=== PATIENT | female | born 1970 | race Caucasian/White ===

== ENCOUNTER 2019-08-05 11:12 | Emergency (ER) | payer OTHER, SELFPAY ==
[2019-08-05 11:26] VITALS: BP 132/82; PULSE 75; RESP 14; TEMP 37; O2SAT 100; BMI 23.0
--- NOTE | 2019-08-05 12:41 | XR_ITS ---
WS: [id number] LUMBAR SPINE TECHNIQUE: 3 views of the lumbar spine CLINICAL INFORMATION: trauma COMPARISON: March 12, 2014 FINDINGS: Five bfj-sof-inmjaav lumbar vertebral bodies. Mild lumbar curve convex left. Chronic anterior wedging in the lower thoracic spine. Mild disc space narrowing L1-2. Mild to moderate facet arthropathy L5-S 1. Aortic calcification. Alignment is unchanged since 2013. XR/XR lumbar spine 2-3V* [id number] IMPRESSION: No acute lumbar spine findings.
--- NOTE | 2019-08-05 12:42 | ED_ITS ---
HPI - Back Pain/Injury General: Chief Complaint: Back Pain/Injury Stated Complaint: BACK PAIN X 5 WEEKS Time Seen by Provider: 08/05/19 12:29 History of Present Illness: HPI Narrative: Patient was jumping on trampoline the other day and then her back started hurting couple days later and is continued hurts she has been to the walk-in clinic and they gave her Toradol shot and Parafon forte. This did not really help and she went saw Dr. Oneil and he gave her steroid shot and gave her some Flexeril and she said steroid shot did bring some effective relief but the pain is starting to come back now denies any pain with ambulation does have pain with rolling over in bed get up out of chair trying to lift anything and it located on her left side of her back MD elicited complaint: back pain and back injury Pertinent past history: prior back pain Onset (ago): day(s) Timing: progressively worsening Severity: moderate Similar Symptoms Previously: No Quality: aching Location: lumbar spine and left flank Radiation: none Exacerbating factors: walking and lifting Relieving factors: immobilization Context: other (Jumping on trampoline) Associated symptoms: Reports no associated symptoms; Deny abdominal pain, chills, fever(s), nausea or vomiting Review of Systems Const: Denies: fever(s), chills or body aches Eyes: Denies: change in vision or blurry vision ENMT: Denies: throat pain or nasal congestion Card: Denies: chest pain or dyspnea on exertion Resp: Denies: dyspnea, productive cough or non-productive cough GI: Denies: abdominal pain, nausea or vomiting Musc: Reports: back pain; Denies: extremity pain Skin/Breast: Denies: rash Neuro: Denies: headache(s) Psych: Denies: anxiety or depression [place]/Lymph: Denies: easy bruising PFSH ED PFSH: Social History Smoking and tobacco status: never smoked Physical Exam Const: COMMON NORMALS: no acute distress, average body habitus and patient oriented x3 HENMT: COMMON NORMALS: normocephalic HEAD & SCALP: normal to inspection and normocephalic FACE & SINUS: normal facial exam Eye: COMMON NORMALS: conjunctivae normal GENERAL EYE: appearance normal, both eyes and all related structures CONJUNCTIVA: Yes conjunctivae normal Neck/C-Spine: COMMON NORMALS: no JVD Chest: COMMONS NORMALS: normal inspection of the chest Resp: COMMON NORMALS: normal respiratory effort and clear to auscultation bilaterally AUSCULTATION: clear to auscultation bilaterally Cardio: COMMON NORMALS: no JVD, regular rate and regular rhythm RATE: regular rate RHYTHM: regular rhythm GI: COMMON NORMALS: Normal to inspection, nondistended, normoactive bowel sounds present Back/Pelvis: LUMBAR SPINE/LOWER BACK: Yes straight leg raise positive left Extremity: COMMON NORMALS: normal to inspection and full ROM Neuro: COMMON NORMALS: patient oriented x3 Course Vital Signs: Vital signs: Vital Signs Temperature 98.6 F 08/05/19 11:26 Pulse Rate 75 08/05/19 11:26 Respiratory Rate 14 08/05/19 11:26 Blood Pressure 132/82 08/05/19 11:26 Pulse Oximetry 100 08/05/19 11:26 Discharge Plan Discharge Condition: Good Coding Level of Care Code ED Analytics Developer for Olena Jung
[2019-08-05 13:37] VITALS: BP 136/68; PULSE 72; RESP 17; O2SAT 98
== END 2019-08-05 13:39 | disposition home or self-care (01) ==
PROVIDERS: Emergency Provider Nurse Practitioner Family; PCP Family Medicine
DX: M54.9 Dorsalgia, unspecified (principal)
CPT/HCPCS: 12345; 72100; 99281; 99283

== ENCOUNTER 2020-11-24 10:21 | Emergency (ER) | payer OTHER, SELFPAY ==
--- NOTE | 2020-11-24 10:22 | ECG_ITS ---
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 Measurements Intervals [place] Rate: 50 P: 68 GA: 130 QRS: 18 QRSD: 86 T: 56 QT: 446 QTc: 409 Interpretive Statements SINUS BRADYCARDIA Compared to ECG 03/22/2015 12:12:06 No significant changes Electronically Signed On 11-24-2020 17:03:36 CDT by Virginia Colorado M.D. [email or web address]/[id number] f
--- NOTE | 2020-11-24 10:22 | XR_ITS ---
WS: [id number] Portable AP upright chest, 11/24/2020 Clinical Data: chest pain Comparison: PA and lateral chest, 02/26/2018. Findings: No nodules, masses or effusions are seen. The heart is slightly enlarged. The pulmonary vas cularity is not increased. No pneumonia or pneumothorax is seen. XR/XR chest 1V portable [id number] Impression: Mild cardiomegaly.
[2020-11-24 10:39] VITALS: BP 159/83; PULSE 50; RESP 16; TEMP 36.8; O2SAT 98; BMI 22.6
--- NOTE | 2020-11-24 12:22 | ECG_ITS ---
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 Measurements Intervals [place] Rate: 49 P: 59 NH: 131 QRS: -9 QRSD: 94 T: 42 QT: 465 QTc: 420 Interpretive Statements SINUS BRADYCARDIA INCOMPLETE RIGHT BUNDLE BRANCH BLOCK [90+ ms QRS DURATION, TERMINAL R IN V1/V2, 40+ ms S IN I/aVL/V4/V5/V6] Compared to ECG 11/24/2020 10:45:36 Incomplete right bundle-branch block now present Electronically Signed On 11-25-2020 9:30:31 CDT by Virginia Colorado M.D. [email or web address])/store/NU/[id number] f
[2020-11-24 12:30] VITALS: BP 193/99; PULSE 53; RESP 19; O2SAT 98
[2020-11-24 12:43] LABS: Basophils % 0.5 %; Eosinophils # 0.1 10^3/uL (0.0-0.8); Eosinophils % 1.3 %; Hemoglobin 13.9 g/dL (11.5-15.3); Lymphocytes % 38.4 %; Mean Corpuscular HGB Conc 33.1 g/dL (30.0-36.0); Mean Corpuscular Hemoglobin 30.7 pg (28.0-34.0); Mean Corpuscular Volume 92.7 fl (81-99); Mean Platelet Volume 9.7 fL (7.4-10.4); Monocytes # 0.7 10^3/uL (0.2-0.9); Monocytes % 9.4 %; Neutrophils # 3.87 10^3/uL (1.8-7.7); Neutrophils % 50.1 %; Nucleated Red Blood Cells % 0 %; Platelet Count 317 10^3/cmm (130-400); Red Blood Count 4.53 10^6/uL (4.1-5.3); Red Cell Distribution Width 12.3 % (12.1-15.1); White Blood Count 7.7 10^3/uL (4.0-10.0)
--- NOTE | 2020-11-24 12:53 | W.ED.CHESTPA ---
HPI - Chest Pain General: Chief Complaint: Chest Pain Stated Complaint: chest pain for 4 days Time Seen by Provider: 11/24/20 12:03 History of Present Illness: HPI narrative: 50-year-old female presents to the emergency room with complaint of chest pain for the last 4 days. She initially thought it was heartburn-like. Pain is persisted. Patient exercises regularly and during the course of the time of having this chest pain she is run up to a mile with no change in the chest discomfort is not made better or worse. She is bradycardic from a conditioning on her heart rate usually runs in the low upper 40s to low 50s. Patient has no known history of heart disease. MD complaint: chest discomfort Onset (ago): day(s) (4) Timing of current episode: constant Prior episodes: Yes Onset: during rest and during exertion Pain location: left chest Pain radiation: none Severity: mild Quality: aching and dull Relieving factors: nothing Exacerbating factors: nothing Associated symptoms: Deny abdominal pain, diaphoresis, dyspnea, fever(s), leg edema, nausea, palpitations, sense of impending doom, syncope or vomiting Treatment prior to arrival: none Review of Systems Const: Denies: fever(s) or diaphoresis ENMT: Denies: throat pain, ear or mastoid pain, nasal discharge or nasal congestion Card: Denies: palpitations or syncope Resp: Denies: dyspnea GI: Denies: abdominal pain, nausea or vomiting : Denies: flank pain, difficulty voiding, dysuria, urinary frequency or urinary urgency Skin/Breast: Denies: rash or pruritus [facility] ED PFSH: Social History Smoking and tobacco status: never smoked Physical Exam Const: COMMON NORMALS: no acute distress GENERAL APPEARANCE: cooperative and comfortable ORIENTATION/CONSCIOUSNESS: Yes awake, Yes oriented to person, Yes oriented to place and Yes oriented to time HENMT: COMMON NORMALS: normocephalic, atraumatic, hearing grossly normal bilaterally, external ears normal, EAC's normal, TM's normal bilaterally, Normal nasal mucous membranes and turbinates present, moist oral mucous membranes and oropharynx normal HEAD & SCALP: normocephalic and atraumatic NOSE: Normal nasal mucous membranes and turbinates present EXTERNAL EAR: Yes external ears normal EXTERNAL AUDITORY CANAL: EAC's normal TYMPANIC MEMBRANE: TM's normal bilaterally Eye: COMMON NORMALS: Equal, round and reactive pupils present, EOMs intact bilaterally, conjunctivae normal and no scleral icterus CONJUNCTIVA: Yes conjunctivae normal PUPIL: Yes Equal, round and reactive pupils present Neck/C-Spine: COMMON NORMALS: full ROM, no lymphadenopathy, supple and no JVD Lymph: LYMPHATIC: no lymphadenopathy noted and no lymphedema noted Resp: COMMON NORMALS: normal respiratory effort, No retractions, No use of accessory muscles and clear to auscultation bilaterally AUSCULTATION: clear to auscultation bilaterally Cardio: COMMON NORMALS: no JVD, regular rate, regular rhythm and No murmurs present (Cardio) RATE: regular rate RHYTHM: regular rhythm GI: COMMON NORMALS: Soft to palpation and No hepatosplenomegaly present AUSCULTATION: Yes normoactive bowel sounds PALPATION: Yes Soft to palpation, No Tenderness to palpation present (GI), No Guarding due to palpation present (GI) and Yes No hepatosplenomegaly present Extremity: COMMON NORMALS: normal to inspection, capillary refill normal, no clubbing, cyanosis or edema, no calf tenderness and no pedal edema Neuro: SENSORIUM/ORIENTATION: Yes oriented to person, Yes oriented to place and Yes oriented to time Skin: COMMON NORMALS: no rashes or lesions noted GENERAL SKIN EXAM: no rashes or lesions noted Course Vital Signs: Vital signs: Vital Signs Temperature 98.3 F 11/24/20 10:39 Pulse Rate 53 L 11/24/20 12:30 Respiratory Rate 19 H 11/24/20 12:30 Blood Pressure 193/99 11/24/20 12:30 Pulse Oximetry 98 11/24/20 12:30 MDM - Chest Pain MDM Narrative: Medical decision making narrative: Symptoms for 4 days troponin negative interestingly she is running a mile with no change in her symptoms. I will pretty low suspicion of this being cardiac in nature given that Lab Data: Labs: Lab Results 11/24/20 11/24/20 11/24/20 Range/Units 12:30 12:30 12:30 WBC 7.7 (4.0-10.0) 10^3/ uL RBC 4.53 (4.1-5.3) 10^6/u L Hgb 13.9 (11.5-15.3) g/dL Hct 42.0 (37.0-47.0) % MCV 92.7 (81-99) fl MCH 30.7 (28.0-34.0) pg MCHC 33.1 (30.0-36.0) g/dL RDW 12.3 (12.1-15.1) % Plt Count 317 (130-400) 10^3/c mm MPV 9.7 (7.4-10.4) fL Neut % (Auto) 50.1 % Lymph % (Auto) 38.4 % [place] % (Auto) 9.4 % Eos % (Auto) 1.3 % Baso % (Auto) 0.5 % Neut # (Auto) 3.87 (1.8-7.7) 10^3/u L Lymph # (Auto) 3.0 (0.8-4.8) 10^3/u L [place] # (Auto) 0.7 (0.2-0.9) 10^3/u L Eos # (Auto) 0.1 (0.0-0.8) 10^3/u L Baso # (Auto) 0.0 (0.0-0.1) 10^3/u L Nucleated RBC % (a uto) 0 % Nucleated RBCs # 0.0 /100WBC Sodium 138 (136-145) mmol/L Potassium 3.8 (3.5-5.1) mmol/L Chloride 100 (98-107) mmol/L Carbon Dioxide 26 (22-29) mmol/L Anion Gap 15.8 (5-19) BUN 7 (6-20) mg/dL Creatinine 0.6 (0.5-0.9) mg/dL GFR Calculation 105.0 (90-130) mL/min Glucose 83 (65-115) mg/dL Calculated Osmolal ity 283 L (285-295) mOsm/k g Calcium 9.1 (8.5-10.5) mg/dL Total Bilirubin 0.2 (0.15-1.2) mg/dL AST 20 (0-32) U/L ALT 9 (0-33) U/L Alkaline Phosphata se 91 (35-105) IU/L Troponin T Baselin e 6 (0-10) ng/L Total Protein 7.2 (6.6-8.7) g/dL Albumin 4.3 (3.5-5.2) g/dL Globulin 2.9 (1.3-4.6) g/dL Discharge Plan Discharge Patient Disposition: Home Clinical Impression: Atypical chest pain Condition: Stable Prescriptions: New aspirin 81 mg tablet,delayed release (DR/EC) 81 mg PO DAILY Qty: 30 RF: 0 Protonix 40 mg tablet,delayed release (DR/EC) 40 mg PO DAILY 56 Days RF: 0 No Action ibuprofen 800 mg tablet 800 mg PO Q6H PRN (Reason: Pain) RF: 0 Discharge Orders: Discharge ED (Routine); Ordered 11/24/20 Ordered By: Eros Goodwin Referrals: Kayode Oneil MD [Primary Care Provider] - Discharge Diet: Usual diet Discharge Activity: Limit activity as instructed Patient Instructions: Opioid Safety Activity Restrictions/Additional Instructions: Case management will call to set up for his Lexiscan sestamibi stress test Coding Level of Care Code ED Legal Administrative Assistant for Olena Jung
[2020-11-24 13:09] LABS: Troponin(5th) Baseline 6 ng/L (0-10)
[2020-11-24 13:10] LABS: Alanine Aminotransferase 9 U/L (0-33); Albumin Level 4.3 g/dL (3.5-5.2); Alkaline Phosphatase 91 IU/L (35-105); Anion Gap 15.8 (5-19); Aspartate Amino Transferase 20 U/L (0-32); Blood Urea Nitrogen 7 mg/dL (6-20); Calcium 9.1 mg/dL (8.5-10.5); Carbon Dioxide 26 mmol/L (22-29); Chloride 100 mmol/L (98-107); Globulin 2.9 g/dL (1.3-4.6); Glucose 83 mg/dL (65-115); Osmolality Calculated 283 mOsm/kg (285-295); Potassium 3.8 mmol/L (3.5-5.1); Sodium 138 mmol/L (136-145); Total Bilirubin 0.2 mg/dL (0.15-1.2); Total Protein 7.2 g/dL (6.6-8.7)
[2020-11-24] MEDS: lidocaine 2% viscous 15 ML, aluminum-mag hydrox-simethicon 30 ML, sucralfate oral liq 1 GM PO (13:14)
== END 2020-11-24 14:06 | disposition home or self-care (01) ==
PROVIDERS: Physician Assistant; Emergency Provider Family Medicine; PCP Family Medicine
DX: R07.89 Other chest pain (principal)
CPT/HCPCS: 71045; 80053; 84484; 85025; 93005; 99283

== ENCOUNTER 2021-01-13 09:59 | Outpatient (CLI) | payer OTHER, SELFPAY ==
[2021-01-13 10:35] VITALS: BMI 23.0
--- NOTE | 2021-01-13 10:35 | ECG_ITS ---
[facility] Test Date: 2021-01-13 Pat Name: Ingrid Coleman Department: Room: Gender: Female Accounting Instructor: Maria Fernanda Strickland : 1970 Requested By: Kayode Covington Order Number: [id number] Jin MD: LUCIUS BALL Interpretive Statements NAME OF STUDY: TREADMILL STRESS TEST INDICATION: Chest Pain, EXERCISE DATA: The patient was exercised by Victor M protocol. Baseline heart rate was 64 beats per minute. Baseline blood pressure was 145/93 millimeters of mercury. Target heart rate was 168 beats per minute. Maximum heart rate achieved was 155, which was 92 % of the target heart rate. Maximum blood pressure was 216/93 millimeters of mercury. Total exercise time was 13.20. Maximum METs achieved was 17.2, maximum VO2 was 60.2. The reason for ending the test was maximum effort achieved. The patient complained of shortness of during the stress test, which then resolved at the end of the test. ELECTROCARDIOGRAM: BASELINE: Showed sinus rhythm, normal axis, no significant ST-T changes at the baseline noted. EXERCISE: At the peak exercise level, no significant ST-T changes suggestive of ischemia noted. RECOVERY: During the recovery period, heart rate dropped appropriately. No significant ST-T changes in the recovery suggestive of ischemia noted. CONCLUSION: 1. Exercise capacity good. 2. Heart rate response was appropriate. 3. Blood pressure response was appropriate. 4. Symptoms not suggestive of ischemia. 5. Electrocardiogram portion of the stress test was not suggestive of ischemia. 6. Nuclear scan will be documented separately. Electronically Signed On 01-13-2021 20:59:35 CDT by LUCIUS BALL [email or web address]/store/OM/[id number]/[id number]
[2021-01-13 11:12] VITALS: BP 158/70; PULSE 80
== END 2021-01-13 10:00 | disposition home or self-care (01) ==
PROVIDERS: PCP Family Medicine; Visit Provider Family Medicine
DX: R07.9 Chest pain, unspecified (principal)
CPT/HCPCS: 93017

== ENCOUNTER 2021-03-02 09:17 | Outpatient (CLI) | payer OTHER, SELFPAY ==
--- NOTE | 2021-03-02 09:23 | MM_ITS ---
WS: [id number] BILATERAL DIGITAL SCREENING MAMMOGRAPHY WITH CAD CLINICAL INFORMATION: SCREENING HISTORY: Screening mammogram. No current complaints. COMPARISON: TECHNIQUE: Bilateral CC and MLO views. FINDINGS: Scattered areas of fibroglandular density bilaterally. Punctate and lucent centered calcifications [place] stable. Stable clustered coarse calcifications. No suspicious mass, asymmetry, calcifications, o r architectural distortion. No evidence of malignancy. MM/[place] [id number] IMPRESSION: BI-RADS: 2-Benign FOLLOW UP: 1 Year Follow-up Recommend return to annual screening mammography.
== END 2021-03-02 09:18 | disposition home or self-care (01) ==
LOC: RADSHAW 09:20
PROVIDERS: PCP Family Medicine; Visit Provider Family Medicine
DX: Z12.31 Encounter for screening mammogram for malignant neoplasm of breast (principal)
CPT/HCPCS: 77067

== ENCOUNTER 2022-01-05 18:36 | Emergency (ER) | payer OTHER, SELFPAY ==
[2022-01-05 18:40] VITALS: BP 102/67; PULSE 105; RESP 16; TEMP 36.8; O2SAT 95; BMI 22.1
--- NOTE | 2022-01-05 18:55 | ECG_ITS ---
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 Measurements Intervals [place] Rate: 107 P: 70 [place]: 122 QRS: 8 QRSD: 75 T: 57 QT: 330 QTc: 440 Interpretive Statements SINUS TACHYCARDIA NONSPECIFIC ST & T-WAVE ABNORMALITY ABNORMAL RHYTHM ECG Compared to ECG 11/24/2020 13:35:45 T-wave abnormality now present Sinus bradycardia no longer present Incomplete right bundle-branch block no longer present Electronically Signed On 01-06-2022 16:47:43 CDT by Joey Canchola M.D. [email or web address]/store/NU/[id number] f
--- NOTE | 2022-01-05 19:01 | XRR_ITS ---
PROCEDURE INFORMATION: Exam: XR Chest Exam date and time: 01/05/2022 7:05 PM Age: 51 years old Clinical indication: Pain; Angina pectoris and chest pressure; Additional info: Cp TECHNIQUE: Imaging protocol: Radiologic exam of the chest. Views: 1 view. COMPARISON: CR XR chest 1V portable [id number] 11/24/2020 10:33 AM FINDINGS: Lungs: Unremarkable. No consolidation. Pleural spaces: Unremarkable. No pleural effusion. No pneumothorax. Heart/Mediastinum: Unremarkable. No cardiomegaly. Bones/joints: Unremarkable. XR/XR chest 1V portable [id number] IMPRESSION: No acute findings.
--- NOTE | 2022-01-05 19:06 | W.ED.CHESTPA ---
HPI - Chest Pain General: Chief Complaint: Chest Pain Stated Complaint: Chest pain Time Seen by Provider: 01/05/22 18:56 Source: patient Mode of arrival: ambulatory Limitations: no limitations History of Present Illness: 51-year-old female states she has been having some palpitations along with chest pain over the last 2 days she states she had her potassium checked yesterday and it was low. States that this evening she started having a sharp pain in her chest along with feeling her heart rate was increasing states that her pain is since resolved she denies any shortness of breath denies any cough denies any fever denies any nausea or diaphoresis. Associated symptoms: Reports palpitations; Deny abdominal pain, dyspnea, fever(s), nausea or vomiting Review of Systems Const: Denies: fever(s), chills, body aches or change in appetite Eyes: Denies: blurry vision or eye discomfort ENMT: Denies: throat pain or dental pain Card: Reports: chest pain and palpitations Resp: Denies: dyspnea GI: Denies: abdominal pain, nausea, vomiting or diarrhea : Denies: dysuria Musc: Denies: neck pain or back pain Skin/Breast: Denies: rash Neuro: Denies: headache(s) Psych: Denies: depression [place]/Lymph: Denies: easy bruising All/Imm: Denies: urticaria PFSH ED PFSH: Medical History No pertinent past medical history Social History Smoking and tobacco status: never smoked Physical Exam Const: COMMON NORMALS: no acute distress, patient oriented x3 and healthy appearing HENMT: COMMON NORMALS: normocephalic and atraumatic HEAD & SCALP: normocephalic and atraumatic Eye: COMMON NORMALS: Equal, round and reactive pupils present and EOMs intact bilaterally PUPIL: Yes Equal, round and reactive pupils present Neck/C-Spine: COMMON NORMALS: full ROM and supple Chest: COMMONS NORMALS: normal inspection of the chest and normal palpation of entire chest wall Resp: COMMON NORMALS: normal respiratory effort, No retractions, No use of accessory muscles and clear to auscultation bilaterally AUSCULTATION: clear to auscultation bilaterally Cardio: COMMON NORMALS: regular rate, regular rhythm and No murmurs present (Cardio) RATE: regular rate RHYTHM: regular rhythm GI: COMMON NORMALS: Normal to inspection, nondistended, normoactive bowel sounds present, Soft to palpation, non-tender and no masses PALPATION: Yes Soft to palpation Extremity: COMMON NORMALS: normal to inspection and full ROM Neuro: COMMON NORMALS: patient oriented x3, moves all extremities and no focal motor deficits Psych: COMMON NORMALS: mental status grossly normal, Normal thought process present and cooperative THOUGHT PROCESS: Normal thought process present Skin: COMMON NORMALS: no rashes or lesions noted and no wounds GENERAL SKIN EXAM: no rashes or lesions noted Course Vital Signs: Vital signs: Vital Signs Temperature 98.3 F 01/05/22 18:40 Pulse Rate 74 01/05/22 21:57 Respiratory Rate 19 H 01/05/22 21:57 Blood Pressure 110/74 01/05/22 21:57 Pulse Oximetry 96 01/05/22 21:57 Oxygen Delivery Me thod 01/05/22 18:40 MDM - Chest Pain Medical Decision Making Patient presents here with chest pain that is atypical in nature patient's initial and repeat troponins here are normal patient stable for discharge. She is stable for discharge she is to follow-up with PCP and return if worsening. Lab Data : 01/05/22 19:20 01/05/22 19:20 Radiology Impressions Chest X-Ray 01/05/22 19:01 IMPRESSION: No acute findings. Laboratory Results WBC 7.8 10^3/uL (4.0-10.0) 01/05/22 19: RBC 4.01 10^6/uL (4.1-5.3) L 01/05/22 19:20 Hgb 12.6 g/dL (11.5-15.3) 01/05/22 19: Hct 36.9 % (37.0-47.0) L 01/05/22 19: MCV 92.0 fl (81-99) 01/05/22 19:20 MCH 31.4 pg (28.0-34.0) 01/05/22 19: MCHC 34.1 g/dL (30.0-36.0) 01/05/22 19:20 RDW 12.0 % (12.1-15.1) L 01/05/22 19:20 Plt Count 277 10^3/cmm (130-400) 01/05/22 19:20 MPV 9.7 fL (7.4-10.4) 01/05/22 19:20 Neut % (Auto) 64.1 % 01/05/22 19:20 Lymph % (Auto) 26.2 % 01/05/22 19:20 [place] % (Auto) 8.7 % 01/05/22 19:20 Eos % (Auto) 0.4 % 01/05/22 19:20 Baso % (Auto) 0.3 % 01/05/22 19:20 Neut # (Auto) 5.02 10^3/uL (1.8-7.7) 01/05/22 19:20 Lymph # (Auto) 2.1 10^3/uL (0.8-4.8) 01/05/22 19:20 [place] # (Auto) 0.7 10^3/uL (0.2-0.9) 01/05/22 19:20 Eos # (Auto) 0.0 10^3/uL (0.0-0.8) 01/05/22 19:20 Baso # (Auto) 0.0 10^3/uL (0.0-0.1) 01/05/22 19:20 Nucleated RBC % (auto) 0 % 01/05/22 19:20 Nucleated RBCs # 0.0 /100WBC 01/05/22 19:20 Sodium 134 mmol/L (136-145) L 01/05/22 19:20 Potassium 3.1 mmol/L (3.5-5.1) L 01/05/22 19:20 Chloride 98 mmol/L (98-107) 01/05/22 19:20 Carbon Dioxide 24 mmol/L (22-29) 01/05/22 19:20 Anion Gap 15.1 (5-19) 01/05/22 19:20 BUN 9 mg/dL (6-20) 01/05/22 19:20 Creatinine 0.6 mg/dL (0.5-0.9) 01/05/22 19:20 GFR Calculation 104.6 mL/min (90-130) 01/05/22 19:20 Glucose 96 mg/dL (65-115) 01/05/22 19:20 Calculated Osmolality 277 mOsm/kg (285-295) L 01/05/22 19:20 Calcium 9.1 mg/dL (8.5-10.5) 01/05/22 19:20 Total Bilirubin 0.3 mg/dL (0.15-1.2) 01/05/22 19:20 AST 17 U/L (0-32) 01/05/22 19:20 ALT 7 U/L (0-33) 01/05/22 19:20 Alkaline Phosphatase 60 U/L (35-105) 01/05/22 19:20 Troponin T Baseline 6 ng/L (0-10) 01/05/22 19:20 Troponin T 120 Minute 8.02 ng/L (0-10) 01/05/22 21:15 Delta Troponin T 2.02 ABS# (0-10) 01/05/22 21:15 Total Protein 7.0 g/dL (6.6-8.7) 01/05/22 19:20 Albumin 3.9 g/dL (3.5-5.2) 01/05/22 19:20 Globulin 3.1 g/dL (1.3-4.6) 01/05/22 19:20 EKG Data EKG 1: I personally reviewed and interpreted this EKG as follows: EKG interpretation date: 01/05/22 EKG interpretation time: 18:44 Interpretation: sinus tach hr [address] or t wave abnormalities Discharge Plan Discharge Patient Disposition: Home Clinical Impression: Chest pain Condition: Stable Prescriptions: No Action ibuprofen 800 mg tablet 800 mg PO Q6H PRN (Reason: Pain) aspirin 81 mg tablet,delayed release (DR/EC) 81 mg PO DAILY Qty: 30 0RF Discharge Orders: Discharge ED (Routine); Ordered 01/05/22 Ordered By: Savita Howell Referrals: Kayode Oneil MD [Primary Care Provider] - 1-3 days Discharge Diet: Advance as tolerated Discharge Activity: Resume usual activity Patient Instructions: Chest Pain (ED) Coding Level of Care Code ED Lagging Machine Operator for Chg Fwd Exam Comprehensive
[2022-01-05 19:17] VITALS: BP 114/87; PULSE 86; RESP 15; O2SAT 96
[2022-01-05 19:29] LABS: Basophils % 0.3 %; Eosinophils % 0.4 %; Hematocrit 36.9 % (37.0-47.0); Hemoglobin 12.6 g/dL (11.5-15.3); Lymphocytes # 2.1 10^3/uL (0.8-4.8); Lymphocytes % 26.2 %; Mean Corpuscular HGB Conc 34.1 g/dL (30.0-36.0); Mean Corpuscular Hemoglobin 31.4 pg (28.0-34.0); Mean Platelet Volume 9.7 fL (7.4-10.4); Monocytes # 0.7 10^3/uL (0.2-0.9); Monocytes % 8.7 %; Neutrophils # 5.02 10^3/uL (1.8-7.7); Neutrophils % 64.1 %; Nucleated Red Blood Cells % 0 %; Platelet Count 277 10^3/cmm (130-400); Red Blood Count 4.01 10^6/uL (4.1-5.3); White Blood Count 7.8 10^3/uL (4.0-10.0)
[2022-01-05 19:52] LABS: Troponin(5th) Baseline 6 ng/L (0-10)
[2022-01-05 19:55] LABS: Alanine Aminotransferase 7 U/L (0-33); Albumin Level 3.9 g/dL (3.5-5.2); Alkaline Phosphatase 60 U/L (35-105); Anion Gap 15.1 (5-19); Aspartate Amino Transferase 17 U/L (0-32); Blood Urea Nitrogen 9 mg/dL (6-20); Calcium 9.1 mg/dL (8.5-10.5); Carbon Dioxide 24 mmol/L (22-29); Chloride 98 mmol/L (98-107); Globulin 3.1 g/dL (1.3-4.6); Glomerular Filtration Rate 104.6 mL/min (90-130); Glucose 96 mg/dL (65-115); Osmolality Calculated 277 mOsm/kg (285-295); Potassium 3.1 mmol/L (3.5-5.1); Sodium 134 mmol/L (136-145); Total Bilirubin 0.3 mg/dL (0.15-1.2)
[2022-01-05 21:00] VITALS: BP 107/78; PULSE 79; RESP 16; O2SAT 96
--- NOTE | 2022-01-05 21:01 | ECG_ITS ---
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 Measurements Intervals [place] Rate: 76 P: 66 NH: 134 QRS: -4 QRSD: 80 T: 40 QT: 384 QTc: 432 Interpretive Statements SINUS RHYTHM Compared to ECG 01/05/2022 18:44:37 Sinus tachycardia no longer present T-wave abnormality no longer present Electronically Signed On 01-06-2022 16:51:23 CDT by Joey Canchola M.D. [email or web address] [email or web address] olive branch hospitalNOBLE PEAK VISIONour [facility] of [facility].Patsnap/store/OM/[id number]/[id number]
[2022-01-05 21:45] LABS: Troponin 5 2HR 8.02 ng/L (0-10)
[2022-01-05 21:57] VITALS: BP 110/74; PULSE 74; RESP 19; O2SAT 96
[2022-01-05 22:01] LABS: Troponin 5 2HR Delta 2.02 ABS# (0-10)
== END 2022-01-05 21:55 | disposition home or self-care (01) ==
PROVIDERS: Emergency Provider Emergency Medicine; PCP Family Medicine
DX: R07.89 Other chest pain (principal)
CPT/HCPCS: 71045; 80053; 84484; 85025; 93005; 99285

== ENCOUNTER 2022-03-27 15:10 | Outpatient (CLI) | payer OTHER, SELFPAY ==
--- NOTE | 2022-03-27 15:31 | XRR_ITS ---
PROCEDURE INFORMATION: Exam: XR Right Hand Exam date and time: 03/27/2022 3:43 PM Age: 52 years old Clinical indication: Condition or disease; Other: 1.5 cm mass on distal right thumb; Prior surgery; Surgery type: RT hand ganglin cyst x's 2 and carpal tunnel TECHNIQUE: Imaging protocol: Radiologic exam of the Right hand. Views: 1 or 2 views. COMPARISON: CR XR hand RT min 3V* [id number] 02/26/2018 4:28 PM FINDINGS: Bones/joints: Normal. No fracture or malalignment. Joint surfaces preserved. Soft tissues: Unremarkable. No soft tissue mass detected.. XR/XR hand RT 2V [id number] IMPRESSION: Normal examination right hand.
== END 2022-03-27 15:11 | disposition home or self-care (01) ==
PROVIDERS: PCP Family Medicine; Visit Provider Dermatology
DX: R22.31 Localized swelling, mass and lump, right upper limb (principal)
CPT/HCPCS: 73120

== ENCOUNTER 2022-03-30 09:21 | Outpatient (CLI) | payer OTHER, SELFPAY ==
--- NOTE | 2022-03-30 09:27 | MM_ITS ---
WS: [id number] BILATERAL SCREENING DIGITAL TOMOSYNTHESIS MAMMOGRAM WITH CAD HISTORY: SCREENING COMPARISON: 03/02/2021 and 01/02/2017 Bilateral CC and MLO views with tomosynthesis and synthetic mammography submitted. Computer aided det ection analyzed. Breast composition: There are scattered areas of fibroglandular density. No suspicious masses, microc alcifications or architectural distortion. Benign calcifications in each breast. MM/[place] [id number] IMPRESSION: BI-RADS: 2-Benign FOLLOW UP: 1 Year Follow-up
== END 2022-03-30 09:22 | disposition home or self-care (01) ==
LOC: RAD 09:22
PROVIDERS: PCP Family Medicine; Visit Provider Family Medicine
DX: Z12.31 Encounter for screening mammogram for malignant neoplasm of breast (principal)
CPT/HCPCS: 77063; 77067

== ENCOUNTER 2022-06-06 06:16 | Day surgery (SDC) | payer OTHER, SELFPAY ==
[2022-06-05 10:28] VITALS: BMI 22.4
[2022-06-06] VITALS (10 sets, daily range): BP systolic 103–141; BP diastolic 56–81; PULSE 63–73; RESP 10–26; TEMP 36.2–36.4; O2SAT 99–100
--- NOTE | 2022-06-06 | XR_ITS ---
WS: [id number] EXAMINATION: XR finger RT min 2V 59595 REASON FOR EXAM: LORRI PICS COMPARISON: None available. ORDER DATE: 06/06/2022 12:00 AM FINDINGS: C-arm views were obtained during an orthopedic procedure. XR/XR finger RT min 2V 13362 IMPRESSION: As above
[2022-06-06] MEDS: acetaminophen 1,000 MG/100 ML PIGGYBACK 400 MG IV (06:39)
[2022-06-06] MEDS: ketorolac 30 mg/mL INJ IVP (06:39)
[2022-06-06] MEDS: scopolamine 1.5 Patch 1 PATCH TRANSDERMA (06:39)
[2022-06-06] MEDS: sodium chloride 0.9% 1,000 ML 30 ML IV (06:40)
--- NOTE | 2022-06-06 07:01 | P.ANESASSM_ITS ---
Pre-Anesthetic Assessment Height/Weight: Height 1.6 m Weight 57.606 kg Temp Pulse Resp BP Pulse Ox O2 Del Method 97.5 F L 64 26 H 137/65 99 06/06/22 06:31 06/06/22 06:31 06/06/22 06:31 06/06/22 06:31 06/06/22 06:31 06/06/22 06:31 Preop Diagnosis: Right thumb chondroma Operation Date: 06/06/22 08:05 Proposed Procedures p [Right thumb chondroma excision 42978,D16.9(Right) - Aftab [place], DO Familial anesthetic complications: NOne Was Beta Mireille taken within 24 hours: N/A Was Clonidine taken within 24 hours: N/A Last intake: Intake Last Liquid Date 06/05/22 Last Liquid Time 20:00 Last Solid Date 06/05/22 Last Solid Time 20:00 Social No alcohol and No tobacco Exam alert, oriented x 3, clear to auscultation bilaterally and regular rate & rhythm Airway Mallampati: Class II Dentition: false CV/HEM Hypertension Anesthetic Plan ASA status: 2 Anesthesia: MAC Risk of > 500 ml blood loss (7ml/kg in children): No Medications/Allergies Home Medications Medication Instructions Recorded Confirmed Last Taken Type ibuprofen 800 mg tablet 800 mg PO Q6H PRN Pain 11/24/20 06/05/22 06/05/22 History mupirocin 2 % topical ointment 1 applic topical BID #22 grams 04/26/22 06/05/22 05/28/22 Rx alprazolam 0.25 mg tablet 0.25 mg PO BID PRN Anxiety 06/05/22 06/05/22 06/04/22 History lidocaine 5 % topical ointment 1 applic topical TID PRN Pain 06/05/22 06/05/22 06/03/22 History losartan 50 mg-hydrochlorothiazide 1 tab PO DAILY 06/05/22 06/05/22 06/05/22 History 12.5 mg tablet potassium chloride 20 mEq 20 meq PO DAILY 06/05/22 06/05/22 06/05/22 History tablet,extended release Allergies Allergy/AdvReac Type Severity Reaction Status Date / Time codeine Allergy ALGY-Rash Verified 05/04/22 15:53 Current Medications Generic Name Dose Route Start Last Admin Trade Name Freq PRN Reason Stop Dose Admin Sodium Chloride 1,000 mls @ 30 mls/hr 06/06/22 06:30 06/06/22 06:40 Sodium Chloride 0.9% IV 06/07/22 06:29 30 mls/hr .Q24H JUDD Administration PFSH Anesthesia Medical History (Updated 05/15/22 @ 23:05 by Aftab Benson DO) Chondroma No pertinent past medical history Social History Smoking and tobacco status: never smoked Data Anesthesia 06/06/22 06:42 Cardiac Studies: No Data to Display
[2022-06-06 07:07] LABS: Anion Gap 11.2 (5-19); Blood Urea Nitrogen 16 mg/dL (6-20); Calcium 8.8 mg/dL (8.5-10.5); Carbon Dioxide 26 mmol/L (22-29); Chloride 111 mmol/L (98-107); Glomerular Filtration Rate 87.2 mL/min (90-130); Glucose 78 mg/dL (65-115); Osmolality Calculated 298 mOsm/kg (285-295); Potassium 4.2 mmol/L (3.5-5.1); Sodium 144 mmol/L (136-145)
--- NOTE | 2022-06-06 08:31 | W.PM.OPSUD ---
Surgery/Procedure H&P Update DATE OF PROCEDURE: June 06, 2022 DATE H&P PERFORMED: 05/11/22 CHANGES TO PREVIOUS DOCUMENTATION: None PREOP DIAGNOSIS: Right thumb chondroma PRIMARY INDICATION FOR PROCEDURE: Right thumb chondroma PLANNED PROCEDURE: Operation Date: 06/06/22 08:05 Proposed Procedures p [Right thumb chondroma excision 45477,D16.9(Right) - Aftab Benson DO
[2022-06-06] MEDS: ceFAZolin 2,000 MG in sodium chloride 0.9% (plus) 50 ML 100 MG IV (08:40)
[2022-06-06] MEDS: lidocaine 1% INJ 10 mL (per mL) 100 ML (09:13)
--- NOTE | 2022-06-06 09:36 | P.PCN_ITS ---
PACU note Narrative: Patient taken to PACU in stable condition recovering well. Pain controlled. Dressings on in place to the right thumb clean dry and intact. Prior to dressing fingertip was warm well-perfused brisk capillary refill less than 2 seconds. Patient does have decreased sensation of the right thumb secon sonya to local digital block. Dressing limits motor assessment. Exam: awake Disposition: discharged
--- NOTE | 2022-06-06 09:36 | PM.OP2 ---
Brief Operative Note Date of procedure: 06/06/22 Pre-op diagnosis: Right thumb chondroma Post-op diagnosis: same Procedure Done: Right thumb chondroma mass excision (2-1/2 cm x 1-1/2 cm x 1 cm) Surgeon: Aftab Benson Estimated blood loss (mL): 3 Complications: None Post-op Plan: Patient taken to PACU in stable condition recovering well dressings on in place clean dry intact will receive appropriate discharge structure as well as pain medication postoperatively. Will be allowed weightbearing as tolerated to the right hand. We will follow-up with me in the office in 2 weeks. Condition: stable Disposition: same day Coding Level of Care Code Acute Code for Olena Jung
--- NOTE | 2022-06-06 09:36 | PM.OP ---
Operative Report Date of procedure: June 06, 2022 Pre-op diagnosis: Preop Diagnosis Right thumb chondroma Post-op diagnosis: Same Post-op findings: Chondroma mass right thumb (2 and half centimeters by 1/2 cm x 1 cm Procedure done: Right thumb chondroma mass excision (2.5 cm x 1.5 cm x 1 cm) Pathology: Chondroma mass excised and sent for pathology for definitive diagnosis Surgeon: Aftab Benson DO Estimated blood loss: 3cc 20 minutes IV fluids: See anesthesia record Complications: None Findings: See operative report narrative Condition: stable Disposition: same day Brief History: Patient is a pleasant 52-year-old female who presented to my office 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 I was asked for removal of this mass. Patient was seen and worked up in the outpatient setting by myself and seen evaluated my office. We talked about treatment options far as nonoperative and operative intervention. This is causing significant pain discomfort and decreased function of the right hand given its right thumb feel her best interest for right thumb chondroma mass excision. We talked about the risk benefits complication alternatives of each treatment option. Understanding risk of surgery patient agrees to proceed with surgical intervention. All questions answered. Procedure: Patient seen evaluated in the preoperative holding area. Consent was reviewed and signed with patient. Correct extremity marked. All questions answered. Patient was seen evaluated by the Anesthesia Department. Once cleared from eval by Anesthesia Department for surgery she was brought back to the operative suite. She was transported on the OR table placed in supine position. All bony prominences well-padded patient properly secured to the bed. An armboard was applied to the right upper arm. Underwent anesthesia per the anesthesia department. A nonsterile tourniquet was applied to the right arm. Patient's right upper extremity was then prepped and draped in standard orthopedic fashion. Final timeout performed. Patient received appropriate preoperative antibiotics. Under sterile aseptic technique local digital block was performed of the right thumb. Once appropriately anesthetized I then utilized an Esmarch tourniquet to exsanguinate the right upper extremity. Identified the right thumb mass that was on the radial aspect of the distal pulp of the right thumb. Previous punch biopsy had a small scab at the central location of the mass. I planned a direct longitudinal incision directly centering over the mass and the previous punch biopsy and elected to size the punch biopsy site out with making sharp scalpel incision with 15 blade. I dissected directly down onto the encapsulated cartilaginous mass. This was firm and cartilaginous in nature. I then utilized Littler dissection scissors and staying on top of the mass mobilized distally radially ulnarly as well as proximally. At this point time I was able to identify the base of the chondroma which did appear to be adhered to the distal phalanx. There was no significant bony growth of the distal phalanx. I then subsequently ellipse incised and remove the chondroma mass excision atraumatically and this was placed in a specimen cup and sent for pathology. A rongeur was used to debride the wound bed and encapsulated cystlike tissue that was around the mass. I did identify subtle cartilaginous changes on the distal phalanx which was then curettaged off of the distal phalanx with a curette as well as with a rongeur to stable healthy bleeding bone. Branches of the digital nerve at the distal aspect of the thumb were protected throughout this case. At this point time I was satisfied with complete mass excision. Tourniquet deflated wound bed was thoroughly irrigated. Hemostasis satisfactory with bipolar electrocautery. I then bipolar electrocautery the area of the distal phalanx that was shared with the chondroma as well as the entire wound bed to prevent any form of mass recurrence. There was some redundancy of the skin at this level secondary to patient skin being stretched by the mass I then ellipticized the skin edges to make for appropriate finger contouring closure of the pulp of the right thumb. This was closed with interrupted nylon suture. Dressings were in place of Xeroform 4 x 4's Uday wrap and an Balaji wrap. Patient was then awake from anesthesia and taken PACU in stable condition. Disposition: Patient taken to PACU in stable condition recovering well. We will see appropriate discharge structure as well as pain medication postoperatively. We will follow-up on her pathology results in the outpatient setting. Patient may be weightbearing as tolerated to the right hand. She will follow-up with me in the office in 2 weeks. Patient understands agrees with current plan. All questions answered.
--- NOTE | 2022-06-06 09:42 | PC.NURSE ---
awake. Airway removed
--- NOTE | 2022-06-06 13:30 | ANE.PACU2 ---
Inpatient post-anesthesia follow up: Airway intact: Yes Vital signs: Temperature 97.5 F Pulse Rate 63 Respiratory Rate 16 Blood Pressure 136/81 Pulse Oximetry 100 Oxygen Delivery Me thod Room Air Oxygen Flow Rate 8 Fraction of Inspir ed Oxygen Hydration adequate: Yes Nausea and vomiting: No Pain level: 1 Mental status: Baseline
== END 2022-06-06 10:36 | disposition home or self-care (01) ==
PROVIDERS: Anesthesiology; PCP Family Medicine; Visit Provider Student in an Organized Health Care Education/Training Program
PROC: (CPT 26210; principal; 2022-06-06 08:05)
DX: D16.9 Benign neoplasm of bone and articular cartilage, unspecified (principal); I10 Essential (primary) hypertension
CPT/HCPCS: 26210; 73140; 76000; 80048; 88309; J0131; J0690; J1100; J1885; J2405; J2704; J2795; J3010; J3490; J7030

== ENCOUNTER → 2022-06-19 15:06 | Outpatient (BNVA) | payer OTHER, SELFPAY | PROVIDERS: PCP Family Medicine; Visit Provider Student in an Organized Health Care Education/Training Program | DX: D16.9 Benign neoplasm of bone and articular cartilage, unspecified (principal) | CPT/HCPCS: 73130 ==

== ENCOUNTER → 2024-01-22 16:07 | Outpatient (BNVA) | payer OTHER, SELFPAY | PROVIDERS: PCP Family Medicine; Referring Provider Family Medicine; Visit Provider Obstetrics & Gynecology | DX: Z12.4 Encounter for screening for malignant neoplasm of cervix (principal) | CPT/HCPCS: 87624 ==

== ENCOUNTER → 2024-03-24 13:02 | Outpatient (BNVA) | payer OTHER, SELFPAY | PROVIDERS: PCP Family Medicine; Visit Provider Obstetrics & Gynecology | DX: N94.10 Unspecified dyspareunia (principal) | CPT/HCPCS: 81000 ==